=== PATIENT | female | born 1960 | race Caucasian/White ===

== ENCOUNTER 2017-01-25 10:57 | Emergency (ER) | payer BC ==
--- NOTE | 2017-01-25 12:16 | CT REPORT ---
HISTORY: Fall with pain. COMPARISON: None. TECHNIQUE: This examination was performed using automated exposure control, adjustment of mA or kV according to patient size, and/or use of iterative reconstruction technique. Multiple contiguous transaxial image s of the pelvis were obtained from the mid abdomen through the pubic symphysis without IV contrast. FINDINGS: The bone mineralization is decreased. There is a complex fracture of the fifth lumbar vertebra with r esultant loss of height estimated at 20%. And there is a retropulsed fragment within AP diameter of a pproximately 5 mm resulting in significant spinal canal stenosis. A fracture line is also noted in th e posterior elements through the spinous process. No obvious paraspinal mass. The sacrum and pelvic ring are grossly intact. Sacroiliac and hip joints are congruent. There are surgical clips in the pelvis and evidence of previous hysterectomy. No soft tissue mass or pathologic lymphadenopathy. No free fluid. IMPRESSION: 1. L5 burst fracture. Recommend further characterization with gadolinium-enhanced MRI. Final Electronic Signature: This report was electronically signed by Arcadio Goetz MD on 01/25/2017 12: 14 PM. sross / / [facility] [phone]
[2017-01-25 14:17] LABS: BLOOD UREA NITROGEN 14 mg/dL (7-17); CALCIUM 9.7 mg/dL (8.4-10.2); CHLORIDE 107 mmol/L (98-107); EST GLOMERULAR FILTRATION RATE > 60 mL/min; GLUCOSE 96 mg/dL (70-100); POTASSIUM 3.4 mmol/L (3.5-5.1); SODIUM 143 mmol/L (137-145)
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
[2017-01-25 14:25] LABS: BASOPHIL# 0.1 X 10^3uL (0.0-0.1); BASOPHILS 0.7 % (0.0-2.0); EOSINOPHILS 1.2 % (0.0-6.0); EOSINOPHILS# 0.2 X 10^3uL (0.0-0.4); HEMATOCRIT 44.9 % (36.0-48.0); LYMPHOCYTES 14.5 % (20.0-40.0); LYMPHOCYTES# 2.1 X 10^3uL (0.8-3.8); MEAN CORPUS. HGB CONCENTRATION 33.4 g/dL (32.0-36.0); MEAN CORPUSCULAR HEMOGLOBIN 33.2 pg (29.0-35.0); MEAN PLATELET VOLUME 8.1 fL (7.4-10.4); MONOCYTES 6.5 % (2.0-10.0); MONOCYTES# 0.9 X 10^3uL (0.2-1.0); NEUTROPHILS 77.1 % (54.0-75.0); NEUTROPHILS# 11.2 X 10^3uL (2.6-6.7); PLATELET COUNT 283 X 10^3uL (130-440); RED BLOOD COUNT 4.52 X 10^6uL (4.20-6.10); RED CELL DISTRIBUTION WIDTH 12.2 % (11.5-14.5); WHITE BLOOD COUNT 14.5 X 10^3uL (3.9-10.7)
[2017-01-25] MEDS ORDERED: MORPHINE SULFATE 4 MG/ML SYR ONE (14:28)
[2017-01-25] MEDS ORDERED: ONDANSETRON HCL 4 MG/2 ML VIAL ONE (14:28)
== END 2017-01-25 14:23 | disposition short-term general hospital (02) ==
LOC: ER 10:57
DX: S32.051A Stable burst fracture of fifth lumbar vertebra, initial encounter for closed fracture (principal); R20.2 Paresthesia of skin; M79.604 Pain in right leg; W10.8XXA Fall (on) (from) other stairs and steps, initial encounter; Y92.89 Other specified places as the place of occurrence of the external cause; Y93.01 Activity, walking, marching and hiking; Z85.41 Personal history of malignant neoplasm of cervix uteri; M21.371 Foot drop, right foot; Z74.3 Need for continuous supervision
CPT/HCPCS: 72192; 80048; 85025; 96374; 96375; 99285; A0425; A0427; J2270; J2405